=== PATIENT | male | born 1980 ===

== ENCOUNTER 2019-05-27 11:19 | Emergency (ER) | payer SELFPAY ==
[2019-05-27 11:27] VITALS: BP 135/99
[2019-05-27] MEDS ORDERED: BOOSTRIX IM ONE (11:28)
--- NOTE | 2019-05-27 11:28 | Event Note ---
ED Screening Note Date of service: 05/27/19 Time: 11:27 ED Screening Note: This is a 39 y.o. M. that presents to the ER with laceration to right 4th & 5th fingers. Tetanus not UTD This initial assessment/diagnostic orders/clinical plan/treatment(s) is/are subject to change based on patients health status, clinical progression and re- assessment by fellow clinical providers in the ED. Further treatment and workup at subsequent clinical providers discretion. Patient/guardian urged not to elope from the ED as their condition may be serious if not clinically assessed and managed. Initial orders include: Boostrix
[2019-05-27] MEDS ORDERED: NORCO 5/325 PO ONE (12:02)
[2019-05-27] MEDS ORDERED: DECADRON IM STA (12:02)
--- NOTE | 2019-05-27 12:02 | Emergency Department Report ---
ED Laceration HPI - HPI Chief Complaint: Extremity Injury, Upper Stated Complaint: CUT RT FINGERS Time Seen by Provider: 05/27/19 11:26 Occurred When: Today Location: Upper Extremity (right fourth and fifth digits) Tetanus Status: Up to Date Laceration Symptoms: Yes Pain (05/24) Other History: Patient here reported that he was chasing a squirrel with a knife and cut his right fourth and fifth finger this morning. He said it was bleeding a lot and he put pressure dressing on it. Report is tetanus vaccine is not up-to-date but he was given vaccination when he first came back. Denies any numbness or stiffness to hands. Denies any radiation of pain proximally. Denies any difficulty moving extremities report pain with movement. ED Review of Systems ROS: Stated complaint: CUT RT FINGERS Other details as noted in HPI Constitutional: denies: chills, fever Respiratory: denies: cough, shortness of breath, wheezing Cardiovascular: denies: chest pain, palpitations Gastrointestinal: denies: nausea, vomiting Musculoskeletal: joint swelling, arthralgia. denies: back pain, myalgia Skin: other (laceration to fingers of right hand) Neurological: denies: headache, weakness, numbness ED Past Medical Hx - Past Medical History Previous Medical History?: No - Surgical History Past Surgical History?: No - Family History Family history: no significant - Social History Smoking Status: Current Every Day Smoker Substance Use Type: Alcohol, Marijuana - Medications Home Medications: Home Medications Medication Instructions Recorded Confirmed Last Taken Type Clindamycin [Clindamycin CAP] 300 mg PO Q8H 10 Days #30 cap 05/27/19 Unknown Rx Ibuprofen [Motrin] 800 mg PO Q8HR PRN #12 tablet 05/27/19 Unknown Rx Prednisone [predniSONE 10 mg 10 mg PO .TAPER #1 tab.ds.pk 05/27/19 Unknown Rx (6-Day Pack, 21 Tabs)] hydrOXYzine HCL [Atarax] 25 mg PO Q6HR PRN #12 tablet 05/27/19 Unknown Rx Laceration Physical Exam - Exam General: Vital signs noted. No distress. Alert and acting appropriately. This is a 39-year-old male well-nourished well-developed in no acute distress. Skin: Patient will laceration to right forth DIP at 2 cm and right fifth DIP at 3 cm. He also has poison claudia or rash that is maculopapular and erythema on his anterior and posterior first saw and upper extremity. Sparsely scattered no signs of infection. Wound Length (cm): 3 (centimeter to right small digit and 2 cm to right fourth digit) Laceration Location: Upper Extremity (lacerations to right fourth and fifth DIP and poison claudia rash to anterior and posterior torso and upper extremities) Full Body Front + Back: 1 - Patient with 3 centimeter laceration circular to right fifth DIP area and 2 cm circular to write for DIP area. No foreign body noted Laceration Exam: Yes Exposed Tendon, Vessel, or Nerve, Yes Normal Distal CMS (No cce. + 2 pulses in all extremities, no neurovascular compromise), No Foreign Body, No Tendon Injury ED Course Vital Signs 05/27/19 11:23 Temperature 99.3 F Pulse Rate 66 Blood Pressure 135/99 Vital Signs 05/27/19 05/27/19 11:23 14:08 Temperature 99.3 F Pulse Rate 66 Respiratory 18 Rate Blood Pressure 135/99 - Reevaluation(s) Reevaluation #1: 05/27/19 14:09 Patient received posterior exterior 0.5 mL inemergency room. He was given [place] 5/325 2 tablets and Decadron 10 mg IM to treat poison claudia. Critical care attestation.: If time is entered above; I have spent that time in minutes in the direct care of this critically ill patient, excluding procedure time. ED Disposition Clinical Impression: Poison claudia dermatitis Laceration of finger without complication Qualifiers: Encounter type: initial encounter Qualified Code(s): S61.219A - Laceration without foreign body of unspecified finger without damage to nail, initial encounter Disposition: TO HOME OR SELFCARE Is pt being admited?: No Does the pt Need Aspirin: No Condition: Stable Instructions: Suture Care (ED), Finger Laceration (ED), Poison Claudia (ED) Additional Instructions: Please keep affected area clean and dry Return to the emergency room or urgent care to have the sutures removed in 7-10 days If poison claudia rash does not get better please go to urgent care emergency room for further treatment otherwise take steroids as instructed Take antibiotic and Motrin for laceration to fingers. If you fingers become worse, to include swelling and difficulty moving, redness, drainage and increasing pain please return to the emergency room [facility] Referrals: PRIMARY CARE,MD [Primary Care Provider] - 2-3 Days (And follow up with urgent care or emergency room and 7-10 days to have sutures removed) [facility] [Outside] - 2-3 Days Forms: Accompanied Note, Work/School Release Form(ED)
[2019-05-27] MEDS ORDERED: XYLOCAINE 1% MPF 5 mL INFILTRATI ONE (12:03)
[2019-05-27] MEDS ORDERED: NACL 0.9% IR ONE (12:03)
== END 2019-05-27 14:29 | disposition home or self-care (01) ==
LOC: ED 11:19
DX: S61.214A Laceration without foreign body of right ring finger without damage to nail, initial encounter (principal); S61.216A Laceration without foreign body of right little finger without damage to nail, initial encounter; F17.200 Nicotine dependence, unspecified, uncomplicated; F12.10 Cannabis abuse, uncomplicated; W26.0XXA Contact with knife, initial encounter; Y93.89 Activity, other specified; Y92.89 Other specified places as the place of occurrence of the external cause; Y99.8 Other external cause status
CPT/HCPCS: 12002; 90471; 90715; 96372; 99282; J1100